=== PATIENT | male | born 1940 | race Caucasian/White ===

== ENCOUNTER → 2017-10-30 | Outpatient (CLI) | payer MEDICARE ==
[~2017-10-30] MED LIST: AGGRENOX (D1 CAPSULE PO; ASPRIN OR; BYSTOLIC10 MG PO; CIPRO; FLOMAX 0.4MG C0.4 MG PO; HYDROCHLOROTH12.5 M2 PO; LISINOPRIL5 MG NG; NORVASC 10MG. T10 MG PO; SYNTHROID0.025 MG PO
[2017-10-30 10:23] LABS: BUN 19 mg/dL (7-18); GFR (ESTIMATED) 59 ML/MIN (>60)
--- NOTE | 2017-10-31 12:59 | RADIOLOGY REPORT PS360 ---
CT POST ORB IAC W/WO Ordering Physician: PRESTON DAVISON Patient Age: 77 years: Male HISTORY: OPTIC ATROPHY TECHNIQUE: Helical CT scanning performed through the orbits pre and postcontrast. 100 cc Isovue-300 hand injection utilized. From the acquired spiral CT data sagittal, coronal and axial reconstruction images performed. COMPARISON :CT head 10/02/2012 FINDINGS No significant findings in either orbit. No retrobulbar mass. Normal appearance Retrobulbar fat. The medial wall and floor before but satisfactory, intact The rectus muscles appear normal size in character.. Optic nerve appears to be symmetric within normal limits in size and character.. No abnormal enhancement. No optic nerve no orbital lesion evident. The globes appear satisfactory... Lacrimal glands generous in size-. Borderline normal. Enhancing vessels at [place] appears- unremarkable. No evidentAneurysms . . Minimal calcification the carotid siphon bilaterally. The region of optic chiasm satisfactory. Sella normal size . Pituitary unremarkable. Normal size.. No suprasellar abnormalities. The limited images of the brain appear with no significant findings. The Small 5 mm stable fatty focus posteriorly along the right margin of the posterior straight sinus where meets the posterior venous sinus confluence is again noted & unchanged since 2012 CT head . These can be seen as normal variant & not of concern. Normal enhancement of straight sinus, & transverse sinus otherwise seen. . deviation nasal septum noted: Slight Sigmoid nasal septum coronal images:. Most notable is the rightward convexity at inferior nasal septum.. The mid & superior septum are slight convex to the left-with associated mild fercho bullosa minimally enlarging of right middle nasal turbinate at its base Paranasal sinuses. Mild diffuse mucosal thickening at the sphenoid sinus with a rounded area measuring up to 1 cm of rim-like calcification posterior right sphenoid sinus floor. Likely reflects calcified mucoid material or small calcified wall epiphyseal. No associated osseous findings or lesion. Similar feature was present in 2011 but now with additional mucosal thickening at resides slightly more to the right. Can be followed Right maxillary with minor less than than 4 mm mucosal thickening along inferior most floor. Otherwise clear Left maxillary sinus well-developed and clear. IMPRESSION 1. Orbits appear satisfactory. No significant findings. The optic nerve & rectus muscles appear symmetric & within normal limits. The optic nerve appears modest but adequate size no appreciable nor definitive optic nerve atrophy nor or lesion.. Retrobulbar region and globes-no significant findings . 2. Only note that the lacrimal gland appear upper normal prominence bilateral. 3. Other minor observations .: ... Mild diffuse mucosal thickening sphenoid sinus. This includes a 1 cm mildly calcified area of old calcified inspissated mucoid material vs small calcified mucocele margin. Similar density present in 2012. ... Mild/moderate Sigmoid deviation nasal septum
--- NOTE | 2017-10-31 13:08 | RADIOLOGY REPORT PS360 ---
CT HEAD WITHOUT CONTRAST CT BONE WINDOWS included ORDERING PHYSICIAN : PRESTON DAVISON PATIENT AGE: 77 years GENDER: Male PROCEDURE: Routine axial images headwithout contrast. Brain & bone windows HISTORY: OPTIC ATROPHY COMPARISON: Previous CT head from 10/02/2012 CT orbits from today FINDINGS: No acute intracranial findings. No hemorrhage. No mass effect or mass lesion. No subdural nor extra-axial collection. Ventricles & basal cisterns appear satisfactory. Parasellar regions appear satisfactory normal cavernous sinus regions. Only minor atrophy, age-appropriate cerebral atrophy, most evident at the frontal lobes. Stable since Unchanged 2011. Normal enhancing sagittal sinus and transverse dural sinuses. Stable small 5 x 6 mm mm fatty focus seen along the right margin of the straight sinus as it approaches the dural venous sinus confluence posteriorly.. These small foci be seen as normal variants and not of significance particularly given its stability since. 2011.. Otherwise posterior fossa appear unremarkable. Postcontrast images show no abnormal areas of enhancement. Normal appearance to the enhancing transverse and superior sagittal sinus otherwise the angles clear. No significant enhancement at orbits. Borderline generous lacrimal glands. . Moderate circumferential mucosal thickening at the sphenoid sinus with a calcified area of mucosal thickening likely reflecting old inspissated mucoid material or calcified small a mucocele. This feature is seen in 2012 appears similar with only interval diffuse mucosal thickening now seen at sphenoid sinus. No fluid level. IMPRESSION: Stable CT of the brain is 2012 No acute intracranial findings.. . No abnormal areas of enhancement. Orbits unremarkable. Very Minor observations in text with No significant change since 2012
== END ==
LOC: RAD 10:03
PROVIDERS: Ophthalmology
DX: H47.20 Unspecified optic atrophy (principal)
CPT/HCPCS: Q9967